=== PATIENT | female | born 1930 | race Hispanic/Latino ===

== ENCOUNTER 2016-09-09 15:01 | Emergency (ER) | payer MEDICARE ==
[2016-09-09 15:05] VITALS: O2SAT 98
--- NOTE | 2016-09-09 15:40 | ED PDOC ---
Lower Extremity Pain/Injury Time Seen by Provider: 09/09/16 15:18 Chief Complaint (Nursing): Lower Extremity Problem/Injury Chief Complaint (Provider): Pain in leg History/Exam Limitations: no limitations Onset/Duration Of Symptoms: Days (3) Current Symptoms Are (Timing): Still Present Additional Complaint(s): Pt. was at [place] visiting her son. She uses a walker usually and did not use it and accidentally fell in the bathroom onto the right side. Pt. has pain to the right femur, hip, and knee. Had x-rays done at an urgent care with no findings. Here as pain is there and trouble walking on the right leg. No numbness, tingles, headaches, neck pain, arm pain, abd pain. No back pain, incontinence, constipation. Past Medical History Reviewed: Nursing Documentation, Vital Signs Vital Signs: Last Vital Signs Temp 98.0 F 09/09/16 15:03 Pulse 93 H 09/09/16 15:03 Resp 16 09/09/16 15:03 BP 143/74 09/09/16 15:03 Pulse Ox 98 09/09/16 15:03 - Medical History PMH: Arthritis, Asthma, COPD, Dementia, Diabetes, HTN, Hypercholesterolemia, Hypothyroidism - Family History Family History: States: Unknown Family Hx - Living Arrangements Living Arrangements: With Family - Social History Current smoker - smoking cessation education provided: No Alcohol: None Drugs: Denies - Immunization History Hx Tetanus Toxoid Vaccination: No Hx Influenza Vaccination: No Hx Pneumococcal Vaccination: No - Home Medications Home Medications: Ambulatory Orders Medication Instructions Recorded Albuterol Sulfate [Albuterol 3 ml IH Q4 PRN 06/20/13 Sulfate 3 ml] Aspirin [Aspirin EC] 325 mg PO DAILY 06/20/13 Atorvastatin Calcium [Lipitor] 20 mg PO DAILY 06/20/13 DULoxetine [Cymbalta] 60 mg PO DAILY 06/20/13 Donepezil Hydrochloride 10 mg PO DAILY 06/20/13 Levothyroxine [Synthroid] 0.112 mg PO DAILY 06/20/13 Lorazepam 0.5 mg PO DAILY 06/20/13 Metformin Hydrochloride [Metformin] 500 mg PO BID 06/20/13 Montelukast [Singulair] 10 mg PO DAILY 06/20/13 Nitroglycerin 0.4 mg SL PRN PRN 06/20/13 Omeprazole 20 mg PO DAILY 06/20/13 Tiotropium [place] Inhaler 1 inhaler IH PRN PRN 06/20/13 [Spiriva Inhalation Handihaler Device] Tramadol Hydrochloride [Tramadol 50 mg PO BID PRN 06/20/13 HCl] Valsartan [Diovan] 80 mg PO DAILY 06/20/13 Zolpidem Tartrate 5 mg PO HS PRN 06/20/13 Docusate Sodium [Colace] 100 mg PO BID #30 sgl 09/15/14 Methylprednisolone [Medrol Dosepak] 4 mg PO DAILY #1 packet 09/15/14 Oxycodone HCl/Acetaminophen 1 tab PO Q6 PRN #24 tab 09/15/14 [Percocet 325 mg-5 mg] Ibuprofen [Motrin] 600 mg PO TID 7 Days 09/09/16 - Allergies Allergies/Adverse Reactions: Allergies Allergy/AdvReac Type Severity Reaction Status Date / Time No Known Allergies Allergy Verified 09/15/14 12:45 Review of Systems ROS Statement: Except As Marked, All Systems Reviewed And Found Negative Musculoskeletal: Positive for: Leg Pain Physical Exam - Reviewed Nursing Documentation Reviewed: Yes Vital Signs Reviewed: Yes - Physical Exam Appears: Positive for: Well, Non-toxic, No Acute Distress Head Exam: Positive for: ATRAUMATIC, NORMAL INSPECTION, NORMOCEPHALIC Skin: Positive for: Normal Color, Warm, DRY Eye Exam: Positive for: Normal appearance, EOMI, PERRL Neck: Positive for: Normal, Painless ROM Cardiovascular/Chest: Positive for: Regular Rate, Rhythm Respiratory: Positive for: CNT, Normal Breath Sounds Gastrointestinal/Abdominal: Positive for: Normal Exam, Bowel Sounds, Soft. Negative for: Tenderness Back: Positive for: Normal Inspection. Negative for: L CVA Tenderness, R CVA Tenderness Extremity: Positive for: Normal ROM, Tenderness (R hip, femure, and R knee; no laxity of knee joints. Pain is generalized; no swelling; Has full ROM.). Negative for: Pedal Edema, Calf Tenderness Neurologic/Psych: Positive for: Alert, Oriented - ECG O2 Sat by Pulse Oximetry: 98 - Radiology X-Ray: Interpreted by Me X-Ray Interpretation: No Acute Disease - CT Scan/US ct Other Rad Studies (CT/US): Read By Radiologist Other Rad Interpretation: no acute - Progress ED Course And Treament: 1810: Stable. Pain improved. No fx. Fu with pcp. AAOx3. Family will take pt. home. Disposition - Clinical Impression Clinical Impression: Leg pain - Patient ED Disposition Is Patient to be Admitted: No Counseled Patient/Family Regarding: Studies Performed, Diagnosis, Need For Followup, Rx Given - Disposition [facility]errals: [facility] - 09/10/16 Disposition: Routine/Home Disposition Time: 18:12 Condition: STABLE Additional Instructions: Return if not better in 3 days. Prescriptions: Ibuprofen [Motrin] 600 mg PO TID 7 Days Instructions: Leg Pain (ED)
--- NOTE | 2016-09-09 17:23 | CT ---
Indication: Fall, pain Noncontrast CT of the right hip Comparison: Right hip radiographs performed 09/15/14 Technique: Noncontrast axial images of the right hip. Sagittal coronal reformatted images were generated and reviewed. This CT exam was performed using 1 or more of the falling dose reduction techniques: Automated exposure control, adjustment of the MAA and/or kV according to patient size, and/or use of iterative reconstruction technique. Total exam DLP: 330.66 Findings: Osseous demineralization limits evaluation for acute fracture lines. No acute fracture identified. No dislocation. Degenerative changes including osteophyte formation. Joint space narrowing of the right hip joint. Joint space narrowing and vacuum disc phenomenon, right sacroiliac joint. Soft tissues appear unremarkable. No focal fluid collection or abscess evident. No evidence of radiopaque foreign body. Vascular calcifications. Partially imaged probable vascular stent, right common iliac artery. Limited visualization of the intrapelvic contents demonstrates diverticulosis without CT evidence of acute diverticulitis. Atherosclerotic calcifications. Impression: No acute fracture. No dislocation. MRI may be considered for further evaluation if indicated. Osseous demineralization. Degenerative changes. Additional incidental findings as above.
--- NOTE | 2016-09-09 17:42 | CT ---
Indication: Hip and knee pain Noncontrast CT of the right knee Comparison: None available Technique: Noncontrast axial images of the right knee. Sagittal coronal reformatted images were generated and reviewed. This CT exam was performed using 1 or more of the falling dose reduction techniques: Automated exposure control, adjustment of the MAA and/or kV according to patient size, and/or use of iterative reconstruction technique. Total exam DLP: 247.80 Findings: Osseous demineralization limits evaluation for acute fracture lines. No acute fracture. No dislocation. Degenerative changes including mild joint space narrowing of the medial and lateral compartments. Tenting of the intercondylar notch. No significant joint effusion. Vascular calcifications. Soft tissues appear grossly unremarkable. No radiopaque foreign bodies. No focal fluid collection. Impression: Osseous demineralization. Degenerative changes. Suggest MRI for further evaluation if indicated.
[2016-09-09 18:41] VITALS: BP 120/70; PULSE 72; RESP 20; TEMP 98
--- NOTE | 2016-09-10 08:08 | RAD ---
PROCEDURE: Right Femur Radiographs. HISTORY: fall and pain COMPARISON: None. TECHNIQUE: AP and Lateral Radiographs of the right femur. FINDINGS: FEMUR: No evidence of acute fracture. No evidence of bony lesion. Diffuse osteopenia is noted. SOFT TISSUES: Soft tissue calcification. OTHER FINDINGS: None. IMPRESSION: No evidence of acute pathology.
== END 2016-09-09 18:42 | disposition home or self-care (01) ==
LOC: H.ER 15:01
DX: M79.604 Pain in right leg (principal); M25.561 Pain in right knee; M25.551 Pain in right hip; W19.XXXA Unspecified fall, initial encounter; Y92.002 Bathroom of unspecified non-institutional (private) residence as the place of occurrence of the external cause; E03.9 Hypothyroidism, unspecified; E11.9 Type 2 diabetes mellitus without complications; E78.00 Pure hypercholesterolemia, unspecified; I10 Essential (primary) hypertension; Z79.82 Long term (current) use of aspirin; Z79.84 Long term (current) use of oral hypoglycemic drugs; J44.9 Chronic obstructive pulmonary disease, unspecified; F03.90 Unspecified dementia, unspecified severity, without behavioral disturbance, psychotic disturbance, mood disturbance, and anxiety

== ENCOUNTER 2018-04-29 13:53 | Emergency (ER) | payer MEDICARE ==
[2018-04-29 14:01] VITALS: PULSE 89
--- NOTE | 2018-04-29 14:33 | ED PDOC ---
HPI: Trauma/Fall - HPI Time Seen by Provider: 04/29/18 14:20 Chief Complaint (Nursing): Trauma Chief Complaint (Provider): Pain back History Per: Patient History/Exam Limitations: no limitations Onset/Duration Of Symptoms: Days (yesterday) Additional Complaint(s): Pt. has dementia and is not suppose to walk on her own. She gets unbalanced. Pt. got up on her own yesterday and fell backward onto her rocking chair. Granddaughter got her up and into bed. Pt. then tried getting up out of bed and fell face forward today morning. Has complain of left lower back and hip. No numbness, tingles, chest pain, weakness, dizziness, palpitations. No incontinence or constipation. No abd pain. No headaches or neck pain. Per daughter her falls were accidentally as she is not suppose to walk around on her own. Past Medical History Reviewed: Nursing Documentation, Vital Signs Vital Signs: Last Vital Signs Temp 98.3 F 04/29/18 13:57 Pulse 89 04/29/18 13:57 Resp 18 04/29/18 13:57 BP 167/84 H 04/29/18 13:57 Pulse Ox 93 L 04/29/18 13:57 - Medical History PMH: Arthritis, Asthma, COPD, Dementia, Diabetes, HTN, Hypercholesterolemia, Hypothyroidism - Family History Family History: States: Unknown Family Hx - Immunization History Hx Tetanus Toxoid Vaccination: No Hx Influenza Vaccination: No Hx Pneumococcal Vaccination: No - Home Medications Home Medications: Ambulatory Orders Medication Instructions Recorded Albuterol Sulfate [Albuterol 3 ml IH Q4 PRN 06/20/13 Sulfate 3 ml] Aspirin [Aspirin EC] 325 mg PO DAILY 06/20/13 Atorvastatin Calcium [Lipitor] 20 mg PO DAILY 06/20/13 DULoxetine [Cymbalta] 60 mg PO DAILY 06/20/13 Levothyroxine [Synthroid] 0.112 mg PO DAILY 06/20/13 Metformin Hydrochloride [Metformin] 500 mg PO BID 06/20/13 Montelukast [Singulair] 10 mg PO DAILY 06/20/13 RX: Donepezil Hydrochloride 10 mg PO DAILY 06/20/13 RX: Lorazepam 0.5 mg PO DAILY 06/20/13 RX: Nitroglycerin 0.4 mg SL PRN PRN 06/20/13 RX: Omeprazole 20 mg PO DAILY 06/20/13 RX: Zolpidem Tartrate 5 mg PO HS PRN 06/20/13 Tiotropium [place] Inhaler 1 inhaler IH PRN PRN 06/20/13 [Spiriva Inhalation Handihaler Device] Tramadol Hydrochloride [Tramadol 50 mg PO BID PRN 06/20/13 HCl] Valsartan [Diovan] 80 mg PO DAILY 06/20/13 Docusate Sodium [Colace] 100 mg PO BID #30 sgl 09/15/14 Methylprednisolone [Medrol Dosepak] 4 mg PO DAILY #1 packet 09/15/14 Oxycodone HCl/Acetaminophen 1 tab PO Q6 PRN #24 tab 09/15/14 [Percocet 325 mg-5 mg] Ibuprofen [Motrin] 600 mg PO TID 7 Days tab 09/09/16 Lidocaine 5% [Lidoderm] 1 ea TD DAILY PRN #10 patch 04/29/18 - Allergies Allergies/Adverse Reactions: Allergies Allergy/AdvReac Type Severity Reaction Status Date / Time No Known Allergies Allergy Verified 04/29/18 13:56 Review of Systems ROS Statement: Except As Marked, All Systems Reviewed And Found Negative Musculoskeletal: Positive for: Back Pain, Leg Pain Physical Exam - Reviewed Nursing Documentation Reviewed: Yes Vital Signs Reviewed: Yes - Physical Exam Appears: Positive for: Non-toxic, No Acute Distress Head Exam: Positive for: ATRAUMATIC, NORMAL INSPECTION, NORMOCEPHALIC Skin: Positive for: Normal Color, Warm, DRY Eye Exam: Positive for: EOMI, Normal appearance, PERRL ENT: Positive for: Normal ENT Inspection Neck: Positive for: Normal, Painless ROM, Supple Cardiovascular/Chest: Positive for: Regular Rate, Rhythm Respiratory: Positive for: CNT, Normal Breath Sounds Gastrointestinal/Abdominal: Positive for: Normal Exam, Soft. Negative for: Tenderness Back: Positive for: Other (mild left lower lateral back; no step off.) Extremity: Positive for: Tenderness (left hip). 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 Negative for: Aphasia, Facial Droop - ECG O2 Sat by Pulse Oximetry: 93 - Progress ED Course And Treament: 1456: Stable. Dr. Peters to take over care. Pt. on asa, no other blood thinners. Disposition - Clinical Impression Clinical Impression: Hip injury, Degenerative disc disease, lumbar, Head injury - Disposition Referrals: Jayleen Jaimes MD [Family Provider] - (FOLLOW UP WITH DR JAIMES TOMORROW SCHEDULED) Disposition Time: 15:00 Condition: STABLE Prescriptions: Lidocaine 5% [Lidoderm] 1 ea TD DAILY PRN #10 patch PRN Reason: PAIN Instructions: Preventing Falls in the Older Adult, Contusion (DC), Minor Head Injury (DC), Degenerative Disc Disease (DC)
--- NOTE | 2018-04-29 15:16 | ED PDOC ---
- ECG O2 Sat by Pulse Oximetry: 93 (RA) Pulse Ox Interpretation: Normal Medical Decision Making Medical Decision Making: Time: 1500 -- Patient endorsed to me by Dr. Muhammad, pending XRs, CT, re-evaluation and final ER disposition. Time: 1521 LUMBAR XR RESULTS FINDINGS: BONES: Osteopenia, leftward lumbar convexity, diffuse lumbar spondylosis. Diffuse lumbar endplate spurring. No compression fracture per lateral series 7552, im age 4 appreciated. No gross subluxation on this image. On this lateral view the AP spinal canal appear shallow at L3-L4 and L5 levels.. Facet hypertrophic arthrosis at L4-5 and L5-S1 is noted. No spondylolysis seen. Extensive atherosclerotic vascular calcifications are present. Bilateral common iliac vascular grafts are present. Right upper quadrant chain sutures and clips present. Moderate stool retention rectum and right upper abdominal quadrant. Inferior right hemipelvic phleboliths inferred. DISC SPACES: Unremarkable. 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 The chronicity of this is unknown. No comparison pertinent studies here suggested. IMPRESSION: No suspect compression fracture seen. In patient's bones are markedly osteopenic limiting optimal evaluation. Spondylosis, levoscoliosis, facet hypertrophic arthrosis our findings noted along with degenerative disc space narrowing most pronounced in the mid to upper lumbar spine. Extensive atherosclerotic vascular disease with common iliac vascular scanner stents present. Is in for that the patient has had some form of prior vascular imaging assessment and no prior such images or reports are now available. 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 Comparison with prior outside studies is advised. Correlation with patient's prior vascular surgeon is advised in terms of assessing chronicity of this status. Cholecystectomy inferred. Time: 152 CT HEAD RESULTS FINDINGS: HEMORRHAGE: No intracranial hemorrhage. BRAIN: No mass effect or edema. Marked cerebral atrophy present. Marked periventricular hypodensities compatible with prominent microvascular ischemic changes. Left and likely lesser right temporal lobe infarct changes-- Subcortical. No associated mass effect. VENTRICLES: Dilatation commensurate with the degree of atrophy. CALVARIUM: Unremarkable. PARANASAL SINUSES: Minimal left posterior ethmoidal sinus mucosal thickening and/or small incidental retention cyst. No more significant appearing paranasal sinus inflammatory changes noted. MASTOID AIR CELLS: Unremarkable as visualized. No inflammatory changes. OTHER FINDINGS: None. IMPRESSION: No intracranial hemorrhage or mass effect. Marked cerebral atrophy marked chronic appearing microvascular ischemic changes. 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 No gross edema appreciated. Trace posterior left ethmoidal sinus inflammatory changes as above. No more significant appearing paranasal sinus inflammatory changes suggested. Time: 1544 CT CERVICAL RESULTS FINDINGS: VERTEBRAE: No fracture. Normal alignment. No destructive bony lesion. DISCS/SPINAL CANAL/NEURAL FORAMINA: Moderate spondylosis noted. Mild to moderate narrowing of the intervertebral disc is spaces noted. PARASPINAL SOFT TISSUES: There is large subcutaneous lipoma in the posterior mid neck noted. OTHER FINDINGS: The scan through the upper chest demonstrate moderate emphysematous changes. IMPRESSION: No evidence of acute displaced fracture or subluxation. Additional findings as discussed above. Time: 1630 HIP XR RESULTS FINDINGS: Generalized osteopenia noted. Bilateral superolateral hip joint space narrowing right greater than left. Greater right acetabular spurring in this patient with left-sided hip pain noted. No gross fracture appreciated. No dislocation seen. Extensive atherosclerotic vascular disease noted. Bilateral common iliac vascular stents inferred. IMPRESSION: Generalized osteopenia. Bilateral hip arthrosis right greater than symptomatic left. The non symptomatic sided right femoral head is slightly deformed No acute fracture of the left hip appreciated. Vascular disease as noted above. Time: 1635 -- Discussed findings and plan of care with patient and family. Patient advised to take Tylenol and Motrin as needed. Will give lidoderm patch for area of most developed pain. Patient to follow up with PMD tomorrow. Scribe Attestation: Documented by Victorino Best, acting as a scribe for Elizabeth Peters MD. Provider Scribe Attestation: All medical record entries made by the Scribe were at my direction and personally dictated by me. I have reviewed the chart and agree that the record accurately reflects my personal performance of the history, physical exam, medical decision making, and the department course for this patient. I have also personally directed, reviewed, and agree with the discharge instructions and disposition. Disposition Counseled Patient/Family Regarding: Studies Performed, Diagnosis, Need For Followup, Rx Given - Clinical Impression Clinical Impression: Hip injury, Degenerative disc disease, lumbar, Head injury - POA Present On Arrival: Falls Or Trauma - Disposition Referrals: Jayleen Jaimes MD [Family Provider] - (FOLLOW UP WITH DR JAIMES TOMORROW SCHEDULED) Disposition: Routine/Home Disposition Time: 16:40 Condition: STABLE Prescriptions: Lidocaine 5% [Lidoderm] 1 ea TD DAILY PRN #10 patch PRN Reason: PAIN Instructions: Minor Head Injury (DC), Degenerative Disc Disease (DC), Contusion (DC), Preventing Falls in the Older Adult
--- NOTE | 2018-04-29 15:26 | RAD ---
Date of service: 04/29/2018 PROCEDURE: Radiographs of the Lumbar Spine. HISTORY: pain COMPARISON: No prior. FINDINGS: BONES: Osteopenia, leftward lumbar convexity, diffuse lumbar spondylosis. Diffuse lumbar endplate spurring. No compression fracture per lateral series 7552, image 5 appreciated. No gross subluxation on this image. On this lateral view the AP spinal canal appear shallow at L3-L4 and L5 levels.. Facet hypertrophic arthrosis at L4-5 and L5-S1 is noted. No spondylolysis seen. Extensive atherosclerotic vascular calcifications are present. Bilateral common iliac vascular grafts are present. Right upper quadrant chain sutures and clips present. Moderate stool retention rectum and right upper abdominal quadrant. Inferior right hemipelvic phleboliths inferred. DISC SPACES: Unremarkable. 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 The chronicity of this is unknown. No comparison pertinent studies here suggested. IMPRESSION: No suspect compression fracture seen. In patient's bones are markedly osteopenic limiting optimal evaluation. Spondylosis, levoscoliosis, facet hypertrophic arthrosis our findings noted along with degenerative disc space narrowing most pronounced in the mid to upper lumbar spine. Extensive atherosclerotic vascular disease with common iliac vascular scanner stents present. Is in for that the patient has had some form of prior vascular imaging assessment and no prior such images or reports are now available. 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 Comparison with prior outside studies is advised. Correlation with patient's prior vascular surgeon is advised in terms of assessing chronicity of this status. Cholecystectomy inferred.
--- NOTE | 2018-04-29 15:38 | CT ---
Date of service: 04/29/2018 PROCEDURE: CT HEAD WITHOUT CONTRAST. HISTORY: headache COMPARISON: None available. TECHNIQUE: Axial computed tomography images were obtained through the head/brain without intravenous contrast. Radiation dose: Total exam DLP = 834.25 mGy-cm. This CT exam was performed using one or more of the following dose reduction techniques: Automated exposure control, adjustment of the mA and/or kV according to patient size, and/or use of iterative reconstruction technique. FINDINGS: HEMORRHAGE: No intracranial hemorrhage. BRAIN: No mass effect or edema. Marked cerebral atrophy present. Marked periventricular hypodensities compatible with prominent microvascular ischemic changes. Left and likely lesser right temporal lobe infarct changes--Subcortical. No associated mass effect. VENTRICLES: Dilatation commensurate with the degree of atrophy. CALVARIUM: Unremarkable. PARANASAL SINUSES: Minimal left posterior ethmoidal sinus mucosal thickening and/or small incidental retention cyst. No more significant appearing paranasal sinus inflammatory changes noted. MASTOID AIR CELLS: Unremarkable as visualized. No inflammatory changes. OTHER FINDINGS: None. IMPRESSION: No intracranial hemorrhage or mass effect. Marked cerebral atrophy marked chronic appearing microvascular ischemic changes. 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 No gross edema appreciated. . Trace posterior left ethmoidal sinus inflammatory changes as above. No more significant appearing paranasal sinus inflammatory changes suggested.
--- NOTE | 2018-04-29 15:47 | CT ---
Date of service: 04/29/2018 PROCEDURE: CT Cervical Spine without contrast HISTORY: neck pain COMPARISON: None available. TECHNIQUE: Axial computed tomography images were obtained of the cervical spine without the use of intravenous contrast. Coronal and sagittal reformatted images were created and reviewed. Radiation dose: Total exam DLP = 302.19 mGy-cm. This CT exam was performed using one or more of the following dose reduction techniques: Automated exposure control, adjustment of the mA and/or kV according to patient size, and/or use of iterative reconstruction technique. FINDINGS: VERTEBRAE: No fracture. Normal alignment. No destructive bony lesion. DISCS/SPINAL CANAL/NEURAL FORAMINA: Moderate spondylosis noted. Mild to moderate narrowing of the intervertebral disc is spaces noted. PARASPINAL SOFT TISSUES: There is large subcutaneous lipoma in the posterior mid neck noted. OTHER FINDINGS: The scan through the upper chest demonstrate moderate emphysematous changes. IMPRESSION: No evidence of acute displaced fracture or subluxation. Additional findings as discussed above.
--- NOTE | 2018-04-29 16:34 | RAD ---
Date of service: 04/29/2018 PROCEDURE: HISTORY: pain COMPARISON: None TECHNIQUE: Three views FINDINGS: Generalized osteopenia noted. Bilateral superolateral hip joint space narrowing right greater than left. Greater right acetabular spurring in this patient with left-sided hip pain noted. No gross fracture appreciated. No dislocation seen. Extensive atherosclerotic vascular disease noted. Bilateral common iliac vascular stents inferred. IMPRESSION: Generalized osteopenia. Bilateral hip arthrosis right greater than symptomatic left. The non symptomatic sided right femoral head is slightly deformed No acute fracture of the left hip appreciated. Vascular disease as noted above.
[2018-04-29 17:29] VITALS: BP 132/74; RESP 19; TEMP 98.6
[2018-05-01 12:37] VITALS: O2SAT 93
== END 2018-04-29 17:29 | disposition home or self-care (01) ==
LOC: H.ER 13:53
DX: S09.90XA Unspecified injury of head, initial encounter (principal); S79.912A Unspecified injury of left hip, initial encounter; W07.XXXA Fall from chair, initial encounter; Y92.89 Other specified places as the place of occurrence of the external cause; M51.36 Other intervertebral disc degeneration, lumbar region; E03.9 Hypothyroidism, unspecified; E11.9 Type 2 diabetes mellitus without complications; E78.00 Pure hypercholesterolemia, unspecified; F03.90 Unspecified dementia, unspecified severity, without behavioral disturbance, psychotic disturbance, mood disturbance, and anxiety; I10 Essential (primary) hypertension; Z79.84 Long term (current) use of oral hypoglycemic drugs